=== PATIENT | male | born 1950 | race Caucasian/White ===

== ENCOUNTER 2019-04-27 14:47 | Emergency (ER) | payer MEDICARE ==
[~2019-04-27] VITALS: Ht 172.7 cm; Wt 80.0 kg
[2019-04-27] MEDS ORDERED: OMEP-218 PO (15:05)
[2019-04-27] MEDS ORDERED: LISI-542 PO (15:05)
[2019-04-27] MEDS ORDERED: CIAL5TAB PO (15:05)
[2019-04-27] MEDS ORDERED: VITA500T PO (15:05)
[2019-04-27] MEDS ORDERED: LANTINJ4 SC (15:05)
[2019-04-27] MEDS ORDERED: METR0.7533 TOP (15:05)
[2019-04-27] MEDS ORDERED: METF10004 PO (15:05)
[2019-04-27] MEDS ORDERED: PERCOCET 5MG/325MG TAB PO ONE (16:00)
[2019-04-27] MEDS ORDERED: IBUPROFEN 800 MG TAB PO ONE (16:00)
[2019-04-27] MEDS ORDERED: ACETAMINOPHEN TAB 650MG DOSE (2X325MG) PO ONE (16:00)
[2019-04-27] MEDS ORDERED: PERC5TAB12 PO (17:14)
[2019-04-27 17:24] VITALS: BP 147/82
--- NOTE | 2019-04-27 19:02 | REP ---
Right rib series: Five views including PA chest. History: Injury in a fall on the right side with difficulty breathing. Findings: PA chest radiograph shows no evidence of pneumothorax or hydrothorax. The lungs are somewhat under aerated. There is mild plate-like atelectasis at the left base. No infiltrate is seen. Mediastinum is not widened. Multiple views of the right ribcage demonstrate nondisplaced fractures of the anterolateral right sixth, seventh, and eighth ribs. A questionable fracture of the anterolateral end of the 9th rib. There is no evidence of bony destructive lesion. There are mild degenerative changes in the right shoulder. Impression: Nondisplaced fractures right 6th through 8th ribs, possibly 9th rib. No complication is identified. Electronically Signed by Amari Hsieh MD 04/28/2019 10:05 A
== END 2019-04-27 17:25 | disposition home or self-care (01) ==
LOC: M ED 14:47
DX: S22.41XA Multiple fractures of ribs, right side, initial encounter for closed fracture (principal); W01.0XXA Fall on same level from slipping, tripping and stumbling without subsequent striking against object, initial encounter; Y92.89 Other specified places as the place of occurrence of the external cause; Y93.79 Activity, other specified sports and athletics; I10 Essential (primary) hypertension; E11.9 Type 2 diabetes mellitus without complications; Z79.899 Other long term (current) drug therapy; Z79.4 Long term (current) use of insulin